=== PATIENT | male | born 1975 | race Hispanic/Latino ===

== ENCOUNTER 2018-05-28 06:50 | Day surgery (SDC) | payer MEDICARE, BC, OTHER ==
[2016-06-20 17:16] VITALS: BMI 22.8
[2018-05-28 07:26] VITALS: RESP 16
[2018-05-28] MEDS ORDERED: Propofol 10 mg/ml Inj (20 ML) ONE (09:15)
[2018-05-28] MEDS ORDERED: Sodium Chloride 0.9% 1,000 ML IV SCH (09:45)
[2018-05-28 11:19] VITALS: BP 132/68; PULSE 55; TEMP 97.6; O2SAT 100
== END 2018-05-28 11:05 | disposition home or self-care (01) ==
LOC: ENDO 06:50
PROVIDERS: ATTEND Specialist
DX: K21.0 Gastro-esophageal reflux disease with esophagitis (principal); K44.9 Diaphragmatic hernia without obstruction or gangrene; K22.10 Ulcer of esophagus without bleeding; Q90.9 Down syndrome, unspecified; K59.00 Constipation, unspecified; Z90.49 Acquired absence of other specified parts of digestive tract; Z88.6 Allergy status to analgesic agent; Z88.1 Allergy status to other antibiotic agents; E66.9 Obesity, unspecified; R13.10 Dysphagia, unspecified; Z68.28 Body mass index [BMI] 28.0-28.9, adult; Z85.47 Personal history of malignant neoplasm of testis
CPT/HCPCS: 43239; 88305; 88312; J2704; J7030; J7040